=== PATIENT | female | born 1965 | race Caucasian/White ===

== ENCOUNTER 2019-05-11 11:36 | Day surgery (SDC) | payer BC ==
[2019-05-11] MEDS ORDERED: LIDOCAINE 4% SOLUTION 50 ML BTL (14:00)
[2019-05-11] MEDS ORDERED: FENTAnyl 50 MCG/ML VIAL (14:41)
[2019-05-11] MEDS ORDERED: MIDAZOLAM 1 MG/ML 2 ML INJ ×2 (14:41)
== END 2019-05-11 15:23 | disposition home or self-care (01) ==
LOC: GIL 11:36
DX: R19.4 Change in bowel habit (principal); K29.50 Unspecified chronic gastritis without bleeding; D50.0 Iron deficiency anemia secondary to blood loss (chronic)
CPT/HCPCS: 43239; 88305; 88312